=== PATIENT | male | born 1995 | race Caucasian/White ===

== ENCOUNTER 2017-03-11 23:48 | Emergency (ER) | payer OTHER ==
[~2017-03-11] VITALS: Ht 180.3 cm; Wt 77.2 kg
[2017-03-12 00:56] LABS: AMPHETAMINE NEGATIVE (500 ng/mL); BARBITURATES NEGATIVE (200 ng/mL); BENZODIAZEPINES NEGATIVE (150 ng/mL); COCAINE NEGATIVE (150 ng/mL); INTERNAL CONTROLS VALID? YES; METHADONE NEGATIVE (200 ng/mL); METHAMPHETAMINE NEGATIVE (500 ng/mL); OPIATES (MORPHINE) NEGATIVE (100 ng/mL); OXYCODONE NEGATIVE (100 ng/mL); PHENCYCLIDINE NEGATIVE (25 ng/mL); PROPOXYPHENE NEGATIVE (300 ng/mL); THC CANNABINOIDS NEGATIVE (50 ng/mL); TRICYCLIC ANTIDEPRESSANTS NEGATIVE (300 ng/mL)
[2017-03-12 01:01] LABS: HEMATOCRIT 40.5 % (38.0-50.0); MCH 29.3 PG (29.0-34.0); MCHC 33.3 G/DL (30.0-36.0); MCV 87.9 FL (86-99); MEAN PLAT.VOLUME 11.8 uM^3 (9.0-12.4); PLATELET COUNT 259 K/uL (156-360); RBC DIS.WIDTH-CV 12.7 % (11.8-14.6); RBC DIS.WIDTH-SD 40.6 % (39-53); RED BLOOD COUNT 4.61 M/uL (4.00-5.50); WHITE BLOOD COUNT 9.8 K/uL (4.1-10.2)
[2017-03-12 01:10] LABS: CHLORIDE 110 mEq/L (99-109); POTASSIUM 4.2 mEq/L (3.7-5.4); SODIUM 142 mEq/L (136-147)
[2017-03-12 01:12] LABS: GLUCOSE 113 mg/dL (70-99)
[2017-03-12 01:13] LABS: ANION GAP 7 MEQ/L (2-14)
[2017-03-12 01:15] LABS: SERUM ETHYL ALCOHOL < 10 mg/dL
[2017-03-12 01:16] LABS: GFR ESTIMATE (CALCULATED) > 59 mL/min/
[2017-03-12 01:17] LABS: UREA NITROGEN (BUN) 9 mg/dL (9-23)
[2017-03-12] MEDS ORDERED: PROZAC20 MG PO (02:35)
[2017-03-12 03:51] VITALS: BP 133/89
== END 2017-03-12 03:52 | disposition home or self-care (01) ==
LOC: EME 23:48
DX: F43.22 Adjustment disorder with anxiety (principal); G47.00 Insomnia, unspecified; Z59.0 Homelessness; F17.200 Nicotine dependence, unspecified, uncomplicated
CPT/HCPCS: 80048; 85027; 90839; 99281; 99284; G0480